=== PATIENT | female | born 1980 | race African-American/Black ===

== ENCOUNTER 2020-02-28 15:49 | Emergency (ER) | payer SELFPAY ==
[~2020-02-28] VITALS: Ht 170.2 cm; Wt 100.0 kg
[2020-02-28 15:54] VITALS: BP 143/81
[2020-02-28 18:05] LABS: CLARITY URINE CLEAR (CLEAR); COLOR URINE YELLOW (YELLOW); KETONES URINE NEGATIVE (NEGATIVE); LEUKOCYTE ESTERASE URINE NEGATIVE (NEGATIVE); NITRITE URINE NEGATIVE (NEGATIVE); OCCULT BLOOD URINE NEGATIVE (NEGATIVE); PROTEIN URINE NEGATIVE (NEGATIVE); SPECIFIC GRAVITY URINE 1.014 (1.005-1.030)
[2020-02-28] MEDS ORDERED: SODIUM CHLORIDE 0.9% 1,000 ML IV ONE (18:19)
[2020-02-28] MEDS ORDERED: ONDANSETRON HCL 4MG/2ML INJ IV STA (18:19)
[2020-02-28] MEDS ORDERED: LORAZEPAM 2MG/ML CPJ IV ONE (18:30)
[2020-02-28 18:58] LABS: BASOPHILS % 0.8 % (0.0-2.0); CHLORIDE 107 mEq/L (98-107); EOSINOPHILS % 0.3 % (0.0-5.0); HEMATOCRIT. 38.9 % (36.0-48.0); HEMOGLOBIN. 12.8 g/dL (12.0-16.0); LYMPHOCYTES % 14.1 % (20.0-50.0); MEAN CORPUSCULAR HEMOGLOBIN 27.1 pg (28.0-32.0); MEAN CORPUSCULAR VOLUME 82.7 fL (81.0-99.0); MEAN PLATELET VOLUME 9.4 fl (7.4-10.4); NEUTROPHILS % 81.8 % (40.0-76.0); PLATELET 251 x1000/uL (130-400); RED BLOOD CELL COUNT 4.71 mill/uL (4.2-5.4); RED CELL DISTRIBUTION WIDTH 13.9 % (11.6-14.6)
[2020-02-28 19:02] LABS: *AMPHETAMINES SCREEN URINE NEGATIVE (NEGATIVE); *BARBITURATES SCREEN URINE NEGATIVE (NEGATIVE); *BENZODIAZEPINES SCREEN URINE NEGATIVE (NEGATIVE); *COCAINE SCREEN URINE NEGATIVE (NEGATIVE); CANNABINOID URINE SCREEN NEGATIVE (NEGATIVE)
[2020-02-28 19:08] LABS: METHADONE URINE SCREEN NEGATIVE (NEGATIVE)
[2020-02-28 19:12] LABS: PHENCYCLIDINE URINE SCREEN NEGATIVE (NEGATIVE)
[2020-02-28 19:18] LABS: OPIATES URINE SCREEN PRESUMTIVE POSITIVE (NEGATIVE)
[2020-02-28] MEDS ORDERED: CLONAZEPAM 1MG TABLET PO ONE (20:00)
== END 2020-02-28 20:26 | disposition home or self-care (01) ==
LOC: ER 15:49
DX: F11.23 Opioid dependence with withdrawal (principal); F41.9 Anxiety disorder, unspecified
CPT/HCPCS: 36415; 80053; 80305; 81003; 81025; 83690; 85025; 93005; 96374; 96375; 99284; J2060; J2405; J7030